=== PATIENT | female | born 1970 | race Caucasian/White ===

== ENCOUNTER 2017-04-23 14:57 | Emergency (ER) | payer OTHER ==
[~2017-04-23] VITALS: Ht 162.6 cm; Wt 86.2 kg
[~2017-04-23 14:57] MED LIST: ATIVAN0.5 MG; CLEOCIN HCL300 MG PO; CLONAZEPAM 0.50.5 M1; FLEXERIL PO; HYDROCODON-ACE1 EAC7 PO; LEVAQUIN 750 M750 MG PO; NAPROSYN500 MG PO; NEURONTIN 300300 M1; NOHOMEMEDICATIONS; NORCO 5-325 TA1 EAC1 PO; NORCO 5-325 TA1 EACH PO; PERCOCET 5-3251 EACH PO; PHENERGAN-CODE120 ML PO; PREDNISONE 20 M20 M1 PO; PREDNISONE 20 M20 MG PO; PROZAC 20 MG20 M1; TRAMADOL 50 MG50 MG PO
[2017-04-23] MEDS ORDERED: ZANAFLEX4 MG PO (15:53)
[2017-04-23] MEDS ORDERED: MEDROLDOSEPACK PO (15:53)
[2017-04-23] MEDS ORDERED: NAPROSYN500 MG PO (15:53)
[2017-04-23 16:04] VITALS: BP 118/72
== END 2017-04-23 16:05 | disposition home or self-care (01) ==
LOC: M.ERS 14:57
DX: M54.31 Sciatica, right side (principal); M25.561 Pain in right knee; F41.9 Anxiety disorder, unspecified; F17.200 Nicotine dependence, unspecified, uncomplicated; Z88.8 Allergy status to other drugs, medicaments and biological substances